=== PATIENT | female | born 1960 | race American Indian/Alaskan Native ===

== ENCOUNTER 2017-02-22 20:26 | Emergency (ER) | payer SELFPAY ==
[2017-02-22 20:30] VITALS: BMI 20.9
[2017-02-22 20:42] VITALS: TEMP 97.9
[2017-02-22 21:04] LABS: BASO # 0.06 K/mm3 (0.0-2.0); BASO % 0.6 % (0.0-3.0); EOS # 0.1 (0.0-0.7); EOS % 0.6 % (1.5-5.0); GRAN # 5.62 (1.4-6.5); GRAN % 57.4 % (50.0-68.0); HEMOGLOBIN 12.7 gm/dL (12.0-16.0); LYMPH # 3.6 (1.2-3.4); LYMPH % 36.4 % (22.0-35.0); MEAN CELL VOLUME 87.3 fL (80.0-105.0); MEAN CORPUSCULAR HEMOGLOBIN 29.4 pg (25.0-35.0); MEAN CORPUSCULAR HGB CONC 33.7 g/dl (31.0-37.0); MEAN PLATELET VOLUME 11.2 fl (7.0-11.0); MONO # 0.5 (0.1-0.6); PLATELET COUNT 288 10^3/uL (120.0-450.0); RBC 4.32 10^6/uL (3.5-6.1); RED CELL DISTRIBUTION WIDTH 12.7 % (11.5-14.5); WHITE BLOOD COUNT 9.8 10^3/ul (4.5-11.0)
[2017-02-22 21:14] LABS: ALB/GLOB RATIO 0.9 (1.1-1.8); ALBUMIN 4.5 g/dL (3.0-4.8); ALT/SGPT 89 U/L (7-56); AST/SGOT 129 U/L (15-39); BLOOD UREA NITROGEN 12 mg/dL (7-21); CALCIUM 10.2 mg/dL (8.4-10.5); GFR AFRICAN-AMERICAN > 60; GFR NON-AFRICAN AMERICAN > 60; LIPASE 165 U/L (23-300); MAGNESIUM 1.6 mg/dL (1.7-2.2)
[2017-02-22 21:16] LABS: INR 0.94 (0.93-1.08); PARTIAL THROMBOPLASTIN TIME 29.5 Seconds (23.7-30.8); PROTHROMBIN TIME 10.1 Seconds (9.9-11.8)
[2017-02-22 21:42] LABS: TROPONIN I < 0.01 ng/mL
[2017-02-22 22:04] LABS: URINE BILIRUBIN NEGATIVE (NEGATIVE); URINE BLOOD NEGATIVE (NEGATIVE); URINE GLUCOSE (UA) 500 mg/dL (NEGATIVE); URINE LEUKOCYTE ESTERASE SMALL Leu/uL (NEGATIVE); URINE NITRATE NEGATIVE (NEGATIVE); URINE PROTEIN 100 mg/dL (<30 mg/dL); URINE UROBILINOGEN 0.2 E.U./dL (<1 E.U./dL)
[2017-02-22 22:09] LABS: URINE APPEARANCE CLEAR (CLEAR); URINE COLOR YELLOW (YELLOW)
[2017-02-22 22:14] LABS: URINE EPITHELIAL CELLS 0 - 2 /hpf (0-5); URINE RBC 0 - 2 /hpf (0-2)
--- NOTE | 2017-02-22 22:54 | US ---
EXAM: US Abdomen Complete CLINICAL HISTORY: 56 years old, female; Pain; Abdominal pain; Epigastric; Additional info: Epigastric pain TECHNIQUE: Real-time ultrasound of the abdomen (complete) with image documentation. EXAM DATE/TIME: 02/22/2017 8:51 PM COMPARISON: No relevant prior studies available. FINDINGS: There is a negative sonographic Hightower's sign per hybrid technologist. No gallstones. No pericholecystic fluid. The gallbladder wall measures 1.7 mm which is within normal limits. The common bile duct measures 4 mm which is within normal limits. The liver is normal. The spleen is normal. The pancreas is normal. There are 1.1 x 2.5 cm, 2 cm, and 1.2 cm peripancreatic lymph nodes noted. No hydronephrosis. Both kidneys measure approximately 10 cm in length. IMPRESSION: No acute findings.
[2017-02-22] MEDS ORDERED: DiphenhydrAMINE 50 mg/ml Inj IVP STA (23:17)
--- NOTE | 2017-02-22 23:46 | ED PDOC ---
Arrival/HPI - General Chief Complaint: GI Problem Time Seen by Provider: 02/22/17 20:36 Historian: Patient, Family - History of Present Illness Narrative History of Present Illness (Text): 02/22/17 23:53 56-year-old female with past medical history of diabetes, HTN and hepatitis C, presents with 2 day history of intermittent nonradiating epigastric pain with multiple episodes of bilious nausea and vomiting. Patient's family at the bedside states that patient had similar episode and was treated at [facility] 6 months ago, since then has not f/u with any doctor due to lack of insurance. Otherwise: (-) fever, (-) chills, (-) CP, (-) SOB, (-) back pain, (- ) diarrhea, (-) constipation, (-) urinary symptoms, (-) fever, (-) melena, (-) hematochezia. Has no history of prior abdominal surgery. Of note, patient is from [facility] and recently came to the < 1 year ago. PMD none Past Medical History - Provider Review Nursing Documentation Reviewed: Yes - Tetanus Immunization Tetanus Immunization: Unknown - Cardiac Hx Hypotension: Yes - Pulmonary Hx Respiratory Disorders: No - Neurological Hx Neurological Disorder: No - HEENT Hx HEENT Disorder: No - Renal Hx Renal Disorder: No - Endocrine/Metabolic Hx Diabetes Mellitus Type 1: Yes - Hematological/Oncological Hx Hepatitis C: Yes - Integumentary Hx Dermatological Disorder: No - Musculoskeletal/Rheumatological Hx Falls: No - Gastrointestinal Hx Gastrointestinal Disorders: Yes Other/Comment: liver problems - Genitourinary/Gynecological Hx Genitourinary Disorders: No - Psychiatric Hx Psychophysiologic Disorder: No Hx Substance Use: No Family/Social History - Physician Review Nursing Documentation Reviewed: Yes Family/Social History: No Known Family HX Smoking Status: Never Smoked Hx Alcohol Use: No Hx Substance Use: No Allergies/Home Meds Allergies/Adverse Reactions: Allergies No Known Allergies Allergy (Verified 02/22/17 20:30) Review of Systems - Review of Systems Constitutional: Normal. absent: Fatigue, Weight Change, Fevers Respiratory: Normal. absent: SOB, Cough, Sputum Cardiovascular: Normal. absent: Chest Pain, Palpitations, Edema Gastrointestinal: Normal, Abdominal Pain, Vomiting. absent: Stool Changes, Appetite Changes Genitourinary Female: Normal. absent: Dysuria, Frequency, Hematuria Musculoskeletal: Normal. absent: Arthralgias, Back Pain, Neck Pain Skin: Normal. absent: Rash, Pruritis, Skin Lesions Physical Exam - Physical Exam Narrative Physical Exam (Text): 02/22/17 23:52 GENERAL APPEARANCE: Patient is awake, alert, oriented x 3, in mild GI distress, is vomiting. SKIN: Warm, dry; (-) cyanosis. EYES: (-) conjunctival pallor, (-) scleral icterus. ENMT: Mucous membranes dry. NECK: (-) tenderness, (-) stiffness, (-) lymphadenopathy. CHEST AND RESPIRATORY: (-) rales, (-) rhonchi, (-) wheezes; breath sounds equal bilaterally. HEART AND CARDIOVASCULAR: (-) irregularity; (-) murmur, (-) gallop. ABDOMEN AND GI: (-) distention. Bowel sounds active; (+) mild epigastric tenderness, (-) guarding, (-) rebound, (-) palpable masses, (-) CVA tenderness, (-) Hightower's. EXTREMITIES: (-) deformity, (-) edema, (+) distal pulses. NEURO AND PSYCH: Mental status as above; (-) focal findings. Vital Signs Temp Pulse Resp BP Pulse Ox 02/23/17 00:01 97.9 F 80 16 131/78 99 02/22/17 23:50 97.9 F 82 16 131/78 97 02/22/17 20:58 84 18 163/82 H 94 L 02/22/17 20:38 97.9 F 104 H 22 213/136 H 95 Medical Decision Making ED Course and Treatment: 02/22/17 23:45 56-year-old female with past medical history of diabetes, HTN and hepatitis C, presents with 2 day history of epigastric pain with nausea and vomiting. Based on history and exam to rule out acute cholecystitis, cholelithiasis, likely dyspepsia. Plan: -- Labs -- IV fluids -- Urinalysis -- EKG -- CXR -- IV Protonix and Zofran -- Reassess and disposition -- US ABD EKG: NSR at 86 bpm, normal axis, (-) acute ST changes, as read by CRISTELA. CXR : NAD, as read by CRISTELA Repeat VS P 84 BP 163/82 Labs reviewed : AST 129 / ALT 89 / Alk Phos 168, T bili wnl, WBC is wnl. Patient went to ultrasound. Patient returns from ultrasound without any incident. On reevaluation, patient is laying in bed in no acute distress. Patient reports significant improvement of abdominal pain and nausea. Patient reports no nausea at this time and is requesting to drink or eat. She also reports of a mild headache, but denies any dizziness, CP, or SOB. On exam, lungs clear, cardiac RRR, abdomen is soft with no tenderness, no guarding, no rebound. VS T 97 P 82 BP 131/78 R 18 O2 97%RA. Given reglan and benadryl IV for headache. Pt offered po fuid challenge. Patient tolerating po fluids, still denies any nausea or abd pain. Abdomen still soft with no tenderness. Ultrasound of the abdomen shows no acute findings. Diagnostic results discussed with the patient and family members in great detail. Advised to follow-up at the clinic in 2 days without fail for reevaluation and follow-up, otherwise to return to the ER at any time for any new or worsening symptoms. Patient states she fully agrees with and understands discharge instructions. States that she agrees with the plan and disposition. Verbalized and repeated discharge instructions and plan. I have given the patient opportunity to ask any additional questions. - Lab Interpretations Lab Results: 02/22/17 20:45 02/22/17 20:45 Lab Results 02/22/17 21:49: Urine Color Yellow, Urine Appearance Clear, Urine pH 8.0, Ur Specific Banner 1.025, Urine Protein 100 H, Urine Glucose (UA) 500 H, Urine Ketones Negative, Urine Blood Negative, Urine Nitrate Negative, Urine Bilirubin Negative, Urine Urobilinogen 0.2, Ur Leukocyte Esterase Small H, Urine RBC 0 - 2 , Urine WBC 1 - 3, Ur Epithelial Cells 0 - 2 02/22/17 20:45: Sodium 142, Potassium 4.0, Chloride 101, Carbon Dioxide 27, Anion Gap 18, BUN 12, Creatinine 0.6, Est GFR ( Amer) > 60, Est GFR (Non- Af Amer) > 60, Random Glucose 113 H, Calcium 10.2, Magnesium 1.6 L, Total Bilirubin 0.5, AST 129 H, ALT 89 H, Alkaline Phosphatase 168 H, Lactate Dehydrogenase 524, Total Creatine Kinase 37, Troponin I < 0.01, Total Protein 9.8 H, Albumin 4.5, Globulin 5.2, Albumin/Globulin Ratio 0.9 L, Lipase 165 02/22/17 20:45: PT 10.1, INR 0.94, APTT 29.5 02/22/17 20:45: WBC 9.8 D, RBC 4.32, Hgb 12.7, Hct 37.7, MCV 87.3, MCH 29.4, MCHC 33.7, RDW 12.7, Plt Count 288, MPV 11.2 H, Gran % 57.4, Lymph % (Auto) 36.4 H, [place] % (Auto) 5.0, Eos % (Auto) 0.6 L, Baso % (Auto) 0.6, Gran # 5.62, Lymph # 3.6 H, [place] # 0.5, Eos # 0.1, Baso # 0.06 - RAD Interpretation Narrative RAD Interpretations (Text): 02/22/17 23:56 US abdomen : FINDINGS: There is a negative sonographic Hightower's sign per geospatial technologist. No gallstones. No pericholecystic fluid. The gallbladder wall measures 1.7 mm which is within normal limits. The common bile duct measures 4 mm which is within normal limits. The liver is normal. The spleen is normal. The pancreas is normal. There are 1.1 x 2.5 cm, 2 cm, and 1.2 cm peripancreatic lymph nodes noted. No hydronephrosis. Both kidneys measure approximately 10 cm in length. IMPRESSION: No acute findings. Dictated and Authenticated by: Elizabeth Acosta MD 02/22/2017 10:53 PM Eastern Time ([place] & [place]) Radiology Orders: 02/22/17 20:51 ABDOMEN COMPLETE [US] Stat 02/22/17 20:58 CHEST PORTABLE [RAD] Stat - Medication Orders Current Medication Orders: Discontinued Medications Diphenhydramine HCl (Benadryl) 25 mg IVP STAT STA Stop: 02/22/17 23:18 Last Admin: 02/22/17 23:37 Dose: 25 mg Metoclopramide HCl (Reglan) 10 mg IVP STAT STA Stop: 02/22/17 23:18 Last Admin: 02/22/17 23:35 Dose: 10 mg Ondansetron HCl (Zofran Inj) 4 mg IVP STAT STA Stop: 02/22/17 20:52 Last Admin: 02/22/17 21:05 Dose: 4 mg Pantoprazole Sodium (Protonix Inj) 40 mg IVP STAT STA Stop: 02/22/17 20:52 Last Admin: 02/22/17 21:05 Dose: 40 mg - PA / ZONE MANAGER / Resident Statement / has reviewed & agrees with the documentation as recorded. Disposition/Present on Arrival - Present on Arrival Any Indicators Present on Arrival: Yes History of DVT/PE: No History of Uncontrolled Diabetes: Yes Urinary Catheter: No History of Decub. Ulcer: No History Surgical Site Infection Following: None - Disposition Have Diagnosis and Disposition been Completed?: Yes Diagnosis: Dyspepsia, Vomiting, Chronic hepatitis Disposition: HOME/ ROUTINE Disposition Time: 23:00 Patient Plan: Discharge Condition: IMPROVED Discharge Instructions (ExitCare): Hepatitis C (ED), Acute Nausea and Vomiting (ED), Abdominal Pain (ED) Print Language: GHANAIAN Additional Instructions: Thank you for letting us take care of you today. You were treated for abdominal pain likely dyspepsia, vomiting, chronic hepatitis C. The emergency medical care you received today was directed at your acute symptoms. If you were prescribed any medication, please fill it and take as directed. It may take several days for your symptoms to resolve. Return to the Emergency Department if your symptoms worsen, do not improve, or if you have any other problems. Please contact the clinic in 2 days for re-evaluation and follow up. Bring any paperwork you were given at discharge with you along with any medications you are taking to your follow up visit. Our treatment cannot replace ongoing medical care by a primary care provider (PCP) outside of the emergency department. Thank you for allowing the [facility] team to be part of your care today. Prescriptions: Famotidine [Pepcid] 40 mg PO DAILY #20 tablet Ondansetron ODT [Zofran ODT] 4 mg PO DAILY PRN #20 odt PRN Reason: Nausea/Vomiting Referrals: [facility] at [facility] [Outside] - Follow up with primary
[2017-02-22 23:50] VITALS: BP 131/78; RESP 16
[2017-02-23 00:02] VITALS: PULSE 80; O2SAT 99
--- NOTE | 2017-02-23 09:30 | RAD ---
HISTORY: epigastric pain COMPARISON: 09/06/2016 FINDINGS: LUNGS: No active pulmonary disease. PLEURA: No significant pleural effusion identified, no pneumothorax apparent. CARDIOVASCULAR: Normal. OSSEOUS STRUCTURES: No significant abnormalities. VISUALIZED UPPER ABDOMEN: Normal. OTHER FINDINGS: None. IMPRESSION: No active disease.
--- NOTE | 2017-02-23 13:20 | CARD ---
APPROVED REPORT EKG Measurement Heart [id number] <Conclusion> Normal sinus rhythm Prolonged QT
== END 2017-02-23 00:02 | disposition home or self-care (01) ==
LOC: ED 20:26
DX: K73.9 Chronic hepatitis, unspecified (principal); R10.13 Epigastric pain; R11.10 Vomiting, unspecified; I10 Essential (primary) hypertension
CPT/HCPCS: 71010; 76700; 80053; 81001; 82550; 83615; 83690; 83735; 84484; 85025; 85610; 85730; 87086; 93005; 96374; 96375; 99284; C9113; J1200; J2405; J2765